=== PATIENT | female | born 1940 | race Caucasian/White ===

== ENCOUNTER 2016-07-16 12:18 | Emergency (ER) | payer MEDICARE, OTHER ==
[2016-07-16 13:19] LABS: HEMOGLOBIN 12.6 gm/dl (12.3-15.3); RED BLOOD COUNT 4.27 M/UL (4.00-5.10); WHITE BLOOD COUNT 6.6 K/UL (4.5-11.0)
[2016-07-16 13:42] LABS: BUN/CREATININE RATIO 28 (0-10)
[2016-08-12] MEDS ORDERED: METFORMIN HCL1000 MG PO (22:43)
[2016-08-12] MEDS ORDERED: CILOSTAZOL100 MG PO (22:44)
[2016-08-12] MEDS ORDERED: LISINOPRIL40 MG PO (22:44)
[2016-08-12] MEDS ORDERED: LEVEMIR100 UNIT/1 SC ×2 (22:45)
[2016-08-12] MEDS ORDERED: CRESTOR10 MG PO (22:46)
[2016-08-12] MEDS ORDERED: ASPIRIN81 MG PO (22:46)
[2016-08-12] MEDS ORDERED: NORVASC 5 MG TAB5 MG PO (22:46)
[2016-08-12] MEDS ORDERED: PLAVIX 75 MG TA75 MG PO (22:47)
[2016-08-12] MEDS ORDERED: GLUCOTROL 10 MG10 MG PO (22:47)
[2016-08-12] MEDS ORDERED: LOPRESSOR 50 MG50 MG PO (22:48)
[2016-08-17] MEDS ORDERED: LASIX40 MG PO (16:46)
[2016-08-17] MEDS ORDERED: K-DUR TAB 20 M20 MEQ PO (16:46)
[2016-08-17] MEDS ORDERED: ALDACTONE25 MG PO (16:47)
[2016-08-17] MEDS ORDERED: CEFUROXIME500 MG PO (16:49)
== END 2016-07-16 17:00 | disposition short-term general hospital (02) ==
LOC: ER1 12:18
PROVIDERS: Emergency Medicine
DX: S02.2XXA Fracture of nasal bones, initial encounter for closed fracture (principal); S01.511A Laceration without foreign body of lip, initial encounter; E11.9 Type 2 diabetes mellitus without complications; I10 Essential (primary) hypertension; I25.10 Atherosclerotic heart disease of native coronary artery without angina pectoris; E78.00 Pure hypercholesterolemia, unspecified; Z95.5 Presence of coronary angioplasty implant and graft; W01.198A Fall on same level from slipping, tripping and stumbling with subsequent striking against other object, initial encounter
CPT/HCPCS: 36415; 70450; 70486; 71010; 72125; 80053; 82550; 82553; 82962; 83874; 84484; 85025; 90714; 93005; 96361; 96372; 96374; 99285; J0690; J1815; J7040; J7050